=== PATIENT | male | born 2000 | race Caucasian/White ===

== ENCOUNTER 2022-08-02 08:49 | Outpatient (CLI) | payer BC, SELFPAY ==
[2022-08-04 09:08] LABS: Calprotectin, Fecal 150 ug/g (<=49)
== END 2022-08-02 08:50 | disposition home or self-care (01) ==
LOC: NFLDREF 11:45
PROVIDERS: PCP Internal Medicine; Visit Provider Internal Medicine
DX: K50.90 Crohn's disease, unspecified, without complications (principal)
CPT/HCPCS: 83993

== ENCOUNTER 2022-12-01 09:00 | Outpatient (RCR) | payer BC, SELFPAY ==
--- NOTE | 2022-07-05 12:52 | URNOTE ---
Received request for prior auth for Infliximab ([id number]). Per [facility], this has been approved 10mg/kg, 70.0 units every 5 weeks for one year. 07/10/2022-07/10/2023. The preferred infliximab drug, Avsola (Q5121) and Inflectra(Q5103) have also been approved. Physician can also choose to use Avsola or Inflectra. Ref #[id number]
[2022-07-14 13:24] VITALS: BP 123/66; PULSE 96; RESP 16; TEMP 36.3; O2SAT 96
[2022-07-14 13:51] LABS: Basophils Absolute Auto 0.02 K/uL (0.00-0.30); Basophils Percent Auto 0.4 % (0.0-3.0); Eosinophils Absolute Auto 0.11 K/uL (0.00-0.50); Hematocrit 43.2 % (37.0-53.0); Hemoglobin* 14.5 gm/dL (13.5-17.5); Lymphocytes Absolute Auto 1.55 K/uL (0.90-2.90); Lymphocytes Percent Auto 28.7 % (20-44); Mean Corpuscular HGB Conc 34 gm/dL (32-36); Mean Corpuscular Hemoglobin 29 pg (26-34); Mean Corpuscular Volume 87 fL (80-100); Monocytes Percent Auto 7.8 % (0.0-11.0); Neutrophils Percent Auto 61.1 % (42.0-72.0); Platelet Count* 180 K/uL (140-440); RDW Coefficient of Variation % 12.4 % (11.5-15.5); Red Blood Count 4.97 m/uL (4.30-5.90)
[2022-07-14 13:55] LABS: Slide Review Reflex No
[2022-07-14] MEDS: 0.9 % SODIUM CHLORIDE 250 ml 250 ML 35 ML IV (13:56)
[2022-07-14 13:58] LABS: Albumin* 4.6 g/dL (3.3-5.0); Chloride* 104 mmol/L (96-114); Potassium* 4.4 mmol/L (3.6-5.1); Sodium* 138 mmol/L (135-149)
[2022-07-14 14:00] LABS: Creatinine* 0.8 mg/dL (0.5-1.5); Est. Creatinine Clearance* 143.85; Estimated Glomerular Filt Rate 129 ml/min
[2022-07-14 14:01] LABS: Alanine Aminotransferase* 49 U/L (4-50); Alkaline Phosphatase* 117 U/L (40-150); Aspartate Amino Transferase* 44 U/L (12-35); Bilirubin Direct* 0.2 mg/dL (0.0-0.5); Bilirubin Total* 0.6 mg/dL (0.1-1.5); Blood Urea Nitrogen* 18 mg/dL (5-24); Carbon Dioxide* 23 mmol/L (20-32); Glucose* 109 mg/dL (60-115); Total Protein* 7.9 g/dL (6.0-8.3)
[2022-07-14 14:02] LABS: Calcium* 9.1 mg/dL (8.4-10.6)
[2022-07-14 14:07] LABS: C Reactive Protein* < 0.5 mg/dL (0.5-1.0)
[2022-07-14 14:38] LABS: Erythrocyte SedimentationRate* 2 mm/hr (2-15)
[2022-08-25 11:34] LABS: Basophils Absolute Auto 0.03 K/uL (0.00-0.30); Basophils Percent Auto 0.6 % (0.0-3.0); Eosinophils Absolute Auto 0.14 K/uL (0.00-0.50); Eosinophils Percent Auto 2.9 % (0.0-7.0); Hemoglobin* 15.4 gm/dL (13.5-17.5); Immature Granulocytes Abs Auto 0.01 K/uL (0.00-0.30); Immature Granulocytes Pct Auto 0.2 %; Lymphocytes Absolute Auto 1.71 K/uL (0.90-2.90); Lymphocytes Percent Auto 35.6 % (20-44); Mean Corpuscular HGB Conc 34 gm/dL (32-36); Mean Corpuscular Hemoglobin 29 pg (26-34); Mean Corpuscular Volume 88 fL (80-100); Monocytes Percent Auto 7.9 % (0.0-11.0); Neutrophils Absolute Auto 2.53 K/uL (1.7-7.0); Neutrophils Percent Auto 52.8 % (42.0-72.0); Platelet Count* 185 K/uL (140-440); RDW Coefficient of Variation % 12.5 % (11.5-15.5); Red Blood Count 5.26 m/uL (4.30-5.90)
[2022-08-25 11:47] LABS: Albumin* 4.7 g/dL (3.3-5.0); Chloride* 105 mmol/L (96-114); Potassium* 4.3 mmol/L (3.6-5.1); Slide Review Reflex No; Sodium* 140 mmol/L (135-149)
[2022-08-25 11:48] VITALS: BP 120/73; PULSE 78; RESP 16; TEMP 36.6; O2SAT 96
[2022-08-25 11:49] LABS: Est. Creatinine Clearance* 115.08; Estimated Glomerular Filt Rate 110 ml/min
[2022-08-25 11:50] LABS: Alanine Aminotransferase* 44 U/L (4-50); Alkaline Phosphatase* 114 U/L (40-150); Aspartate Amino Transferase* 46 U/L (12-35); Bilirubin Total* 0.9 mg/dL (0.1-1.5); Blood Urea Nitrogen* 20 mg/dL (5-24); Carbon Dioxide* 29 mmol/L (20-32); Glucose* 82 mg/dL (60-115); Total Protein* 7.8 g/dL (6.0-8.3)
[2022-08-25 11:51] LABS: Calcium* 9.3 mg/dL (8.4-10.6)
[2022-08-25 11:57] LABS: C Reactive Protein* < 0.5 mg/dL (0.5-1.0)
[2022-08-25 13:53] LABS: Erythrocyte SedimentationRate* 2 mm/hr (2-15)
[2022-08-29 21:20] LABS: Calprotectin, Fecal 124 ug/g (<=49)
[2022-10-12 09:37] LABS: Basophils Absolute Auto 0.03 K/uL (0.00-0.30); Basophils Percent Auto 0.5 % (0.0-3.0); Eosinophils Absolute Auto 0.37 K/uL (0.00-0.50); Eosinophils Percent Auto 6.4 % (0.0-7.0); Hematocrit 45.8 % (37.0-53.0); Hemoglobin* 15.4 gm/dL (13.5-17.5); Immature Granulocytes Abs Auto 0.02 K/uL (0.00-0.30); Immature Granulocytes Pct Auto 0.3 %; Lymphocytes Absolute Auto 2.22 K/uL (0.90-2.90); Lymphocytes Percent Auto 38.5 % (20-44); Mean Corpuscular HGB Conc 34 gm/dL (32-36); Mean Corpuscular Hemoglobin 29 pg (26-34); Mean Corpuscular Volume 87 fL (80-100); Monocytes Percent Auto 9.4 % (0.0-11.0); Neutrophils Absolute Auto 2.59 K/uL (1.7-7.0); Neutrophils Percent Auto 44.9 % (42.0-72.0); Platelet Count* 238 K/uL (140-440); Red Blood Count 5.26 m/uL (4.30-5.90); White Blood Count* 5.77 K/uL (4.50-11.00)
[2022-10-12 09:41] LABS: Slide Review Reflex No
[2022-10-12 10:00] VITALS: BP 113/76; PULSE 76; RESP 16; TEMP 36.2; O2SAT 99
[2022-10-12 10:02] LABS: Albumin* 4.6 g/dL (3.3-5.0); Chloride* 107 mmol/L (96-114); Sodium* 144 mmol/L (135-149)
[2022-10-12 10:03] LABS: Potassium* 4.4 mmol/L (3.6-5.1)
[2022-10-12 10:05] LABS: Alanine Aminotransferase* 54 U/L (4-50); Alkaline Phosphatase* 106 U/L (40-150); Aspartate Amino Transferase* 51 U/L (12-35); Bilirubin Direct* 0.2 mg/dL (0.0-0.5); Bilirubin Total* 0.6 mg/dL (0.1-1.5); Blood Urea Nitrogen* 20 mg/dL (5-24); Carbon Dioxide* 26 mmol/L (20-32); Creatinine* 0.9 mg/dL (0.5-1.5); Est. Creatinine Clearance* 128.86; Estimated Glomerular Filt Rate 125 ml/min; Glucose* 89 mg/dL (60-115); Total Protein* 8.3 g/dL (6.0-8.3)
[2022-10-12 10:06] LABS: Calcium* 9.5 mg/dL (8.4-10.6)
[2022-10-12] MEDS: 0.9 % SODIUM CHLORIDE 250 ml 250 ML 35 ML IV (10:09)
[2022-10-12 10:21] LABS: C Reactive Protein* 1.9 mg/dL (0.5-1.0)
[2022-10-12 10:32] LABS: Erythrocyte SedimentationRate* 10 mm/hr (2-15)
[2022-10-12 10:45] VITALS: BP 126/75; PULSE 73; RESP 18; TEMP 36.9; O2SAT 97
[2022-10-12 11:01] VITALS: BP 123/74; PULSE 70; RESP 18; TEMP 37; O2SAT 96
[2022-10-12 11:32] VITALS: BP 116/65; PULSE 69; RESP 16; TEMP 36.6; O2SAT 96
[2022-10-12 12:22] VITALS: BP 132/79; PULSE 68; RESP 18; TEMP 36.6; O2SAT 96
--- NOTE | 2022-10-12 15:43 | ONC.NURNOTE ---
Pt here today for Infliximab infusion. He notes he has been following at urgent care for a buttocks abscess that was lanced previously and then yesterday; see notes in EMR. He is tolerating antibiotics well; denies fevers or other s/s infection. Per communication with Dr. Kurt Olivia with [facility], [facility] where pt follows, ok to proceed with Infliximab today. See note in pt chart. Labs show WBC WNL; pt has supplies for fecal calprotectin at home and will bring sample in when able.
--- NOTE | 2022-11-20 13:53 | PC.NURSE ---
Addendum entered by Yessica Hill RN 11/28/22 12:39: Patient called today to reschedule his remicade infusion. He was covid positive. His symptoms started 11/19/2022, so able to come back to [facility] if fever free and feeling well on 11/29/2022. Patient was scheduled for this Sunday, pharmacy aware. Original Note: Patient called and stated that he is feeling under the weather today. he is scheduled for a remicade infusion tomorrow at 10am. Patient is getting a COVID test this afternoon. Cancelled patients appointment for tomorrow. Recommended that he call us with the results. If negative, we can get him in next week if his symptoms have improved. If positive, patient will need to wait 10days until next infusion per protocol. Patient aware and will call his MD if he has concerns about waiting this long for his next infusion.
[2022-12-01 09:22] VITALS: BP 126/75; PULSE 82; RESP 16; TEMP 36.7; O2SAT 97
[2022-12-01 09:39] LABS: Basophils Absolute Auto 0.02 K/uL (0.00-0.30); Basophils Percent Auto 0.3 % (0.0-3.0); Eosinophils Absolute Auto 0.26 K/uL (0.00-0.50); Eosinophils Percent Auto 4.3 % (0.0-7.0); Hematocrit 47.1 % (37.0-53.0); Hemoglobin* 15.8 gm/dL (13.5-17.5); Immature Granulocytes Abs Auto 0.01 K/uL (0.00-0.30); Immature Granulocytes Pct Auto 0.2 %; Lymphocytes Absolute Auto 2.14 K/uL (0.90-2.90); Lymphocytes Percent Auto 35.6 % (20-44); Mean Corpuscular HGB Conc 34 gm/dL (32-36); Mean Corpuscular Hemoglobin 29 pg (26-34); Mean Corpuscular Volume 87 fL (80-100); Monocytes Percent Auto 8.8 % (0.0-11.0); Neutrophils Absolute Auto 3.05 K/uL (1.7-7.0); Neutrophils Percent Auto 50.8 % (42.0-72.0); Platelet Count* 210 K/uL (140-440); RDW Coefficient of Variation % 12.2 % (11.5-15.5); Red Blood Count 5.44 m/uL (4.30-5.90); White Blood Count* 6.01 K/uL (4.50-11.00)
[2022-12-01 09:51] LABS: Slide Review Reflex No
[2022-12-01 09:54] LABS: Albumin* 4.5 g/dL (3.3-5.0); Chloride* 106 mmol/L (96-114); Sodium* 139 mmol/L (135-149)
[2022-12-01 09:55] LABS: Potassium* 3.9 mmol/L (3.6-5.1)
[2022-12-01 09:56] LABS: Creatinine* 0.9 mg/dL (0.5-1.5); Est. Creatinine Clearance* 129.36; Estimated Glomerular Filt Rate 125 ml/min
[2022-12-01 09:57] LABS: Alkaline Phosphatase* 100 U/L (40-150); Aspartate Amino Transferase* 42 U/L (12-35); Bilirubin Direct* 0.1 mg/dL (0.0-0.5); Bilirubin Total* 0.6 mg/dL (0.1-1.5); Carbon Dioxide* 26 mmol/L (20-32); Total Protein* 7.8 g/dL (6.0-8.3)
[2022-12-01 09:58] LABS: Alanine Aminotransferase* 45 U/L (4-50); Blood Urea Nitrogen* 19 mg/dL (5-24); Glucose* 87 mg/dL (60-115)
[2022-12-01 10:01] LABS: C Reactive Protein* < 0.5 mg/dL (0.5-1.0)
[2022-12-01] MEDS: 0.9 % SODIUM CHLORIDE 250 ml 250 ML 35 ML IV (10:09)
[2022-12-01 10:52] LABS: Erythrocyte SedimentationRate* 2 mm/hr (2-15)
[2022-12-03 15:20] LABS: Calprotectin, Fecal 129 ug/g (<=49)
== END 2023-01-10 23:59 | disposition home or self-care (01) ==
LOC: CCIC 09:00
PROVIDERS: Clinical Nurse Specialist; PCP Internal Medicine; Referring Provider Internal Medicine; Visit Provider Internal Medicine
DX: K50.90 Crohn's disease, unspecified, without complications (principal)
CPT/HCPCS: 36415; 80053; 80076; 83993; 85025; 85651; 86140; 96413; 96415; J7050

== ENCOUNTER 2023-02-23 08:00 | Outpatient (RCR) | payer BC, SELFPAY ==
[2023-01-12 10:25] VITALS: BP 109/69; PULSE 79; RESP 16; TEMP 36.4; O2SAT 96
[2023-01-12 10:29] LABS: Basophils Absolute Auto 0.04 K/uL (0.00-0.30); Basophils Percent Auto 0.6 % (0.0-3.0); Eosinophils Percent Auto 4.7 % (0.0-7.0); Hematocrit 45.6 % (37.0-53.0); Hemoglobin* 15.6 gm/dL (13.5-17.5); Immature Granulocytes Abs Auto 0.01 K/uL (0.00-0.30); Immature Granulocytes Pct Auto 0.2 %; Mean Corpuscular HGB Conc 34 gm/dL (32-36); Mean Corpuscular Hemoglobin 30 pg (26-34); Mean Corpuscular Volume 86 fL (80-100); Monocytes Percent Auto 7.5 % (0.0-11.0); Platelet Count* 190 K/uL (140-440); RDW Coefficient of Variation % 12.3 % (11.5-15.5); Red Blood Count 5.29 m/uL (4.30-5.90); White Blood Count* 6.42 K/uL (4.50-11.00)
[2023-01-12 10:34] LABS: Slide Review Reflex No
[2023-01-12 10:51] LABS: Albumin* 4.5 g/dL (3.3-5.0)
[2023-01-12 10:52] LABS: Chloride* 108 mmol/L (96-114); Potassium* 4.2 mmol/L (3.6-5.1); Sodium* 139 mmol/L (135-149)
[2023-01-12 10:54] LABS: Creatinine* 0.8 mg/dL (0.5-1.5); Estimated Glomerular Filt Rate 129 ml/min
[2023-01-12 10:55] LABS: Alanine Aminotransferase* 32 U/L (4-50); Alkaline Phosphatase* 109 U/L (40-150); Aspartate Amino Transferase* 36 U/L (12-35); Bilirubin Direct* 0.2 mg/dL (0.0-0.5); Bilirubin Total* 0.5 mg/dL (0.1-1.5); Calcium* 9.1 mg/dL (8.4-10.6); Carbon Dioxide* 23 mmol/L (20-32); Glucose* 91 mg/dL (60-115); Total Protein* 7.8 g/dL (6.0-8.3)
[2023-01-12 11:06] LABS: C Reactive Protein* < 0.5 mg/dL (0.5-1.0)
[2023-01-12 11:49] LABS: Blood Urea Nitrogen* 20 mg/dL (5-24)
[2023-01-12 13:13] LABS: Erythrocyte SedimentationRate* 2 mm/hr (2-15)
[2023-02-23 08:20] LABS: Basophils Absolute Auto 0.03 K/uL (0.00-0.30); Basophils Percent Auto 0.4 % (0.0-3.0); Eosinophils Absolute Auto 0.35 K/uL (0.00-0.50); Eosinophils Percent Auto 4.4 % (0.0-7.0); Hematocrit 48.1 % (37.0-53.0); Hemoglobin* 16.1 gm/dL (13.5-17.5); Immature Granulocytes Abs Auto 0.02 K/uL (0.00-0.30); Immature Granulocytes Pct Auto 0.3 %; Lymphocytes Absolute Auto 2.89 K/uL (0.90-2.90); Lymphocytes Percent Auto 36.6 % (20-44); Mean Corpuscular HGB Conc 34 gm/dL (32-36); Mean Corpuscular Hemoglobin 30 pg (26-34); Mean Corpuscular Volume 88 fL (80-100); Monocytes Percent Auto 7.9 % (0.0-11.0); Neutrophils Absolute Auto 3.98 K/uL (1.7-7.0); Neutrophils Percent Auto 50.4 % (42.0-72.0); Platelet Count* 208 K/uL (140-440); RDW Coefficient of Variation % 13.1 % (11.5-15.5); Red Blood Count 5.46 m/uL (4.30-5.90); White Blood Count* 7.89 K/uL (4.50-11.00)
[2023-02-23 08:21] VITALS: BP 144/77; PULSE 18; RESP 18; TEMP 35.9; O2SAT 96
[2023-02-23 08:26] LABS: Slide Review Reflex No
[2023-02-23 08:33] LABS: Chloride* 104 mmol/L (96-114)
[2023-02-23 08:34] LABS: Albumin* 4.7 g/dL (3.3-5.0); Potassium* 4.1 mmol/L (3.6-5.1); Sodium* 139 mmol/L (135-149)
[2023-02-23 08:36] LABS: Creatinine* 0.8 mg/dL (0.5-1.5); Estimated Glomerular Filt Rate 129 ml/min
[2023-02-23 08:37] LABS: Alanine Aminotransferase* 43 U/L (4-50); Alkaline Phosphatase* 112 U/L (40-150); Aspartate Amino Transferase* 46 U/L (12-35); Bilirubin Direct* 0.2 mg/dL (0.0-0.5); Bilirubin Total* 0.5 mg/dL (0.1-1.5); Blood Urea Nitrogen* 17 mg/dL (5-24); Carbon Dioxide* 21 mmol/L (20-32); Glucose* 90 mg/dL (60-115); Total Protein* 7.7 g/dL (6.0-8.3)
[2023-02-23 08:38] LABS: Calcium* 9.2 mg/dL (8.4-10.6)
[2023-02-23 08:41] LABS: C Reactive Protein* < 0.5 mg/dL (0.5-1.0)
[2023-02-23] MEDS: 0.9 % SODIUM CHLORIDE 250 ml 250 ML 35 ML IV (08:52)
[2023-02-23 09:04] LABS: Erythrocyte SedimentationRate* < 2 mm/hr (2-15)
--- NOTE | 2023-02-23 15:46 | ONC.NURNOTE ---
Pt had his final Remicade infusion today at [facility]. He is finishing college at [employer] shortly and moving to [place], [place]. He has established care with [facility]; records have been requested by them and received.
== END 2023-07-11 23:59 | disposition home or self-care (01) ==
LOC: CCIC 08:00
PROVIDERS: Clinical Nurse Specialist; PCP Internal Medicine; Referring Provider Internal Medicine; Visit Provider Internal Medicine
DX: K50.90 Crohn's disease, unspecified, without complications (principal)
CPT/HCPCS: 36415; 80053; 80076; 83993; 85025; 85651; 86140; 96413; 96415; J7050